=== PATIENT | male | born 1960 | race Caucasian/White ===

== ENCOUNTER 2024-12-11 08:01 | Day surgery (SDC) | payer OTHER, SELFPAY ==
[2024-11-23 09:11] VITALS: BMI 28.1
[2024-11-23 09:36] LABS: Hematocrit 44.7 % (39.0-52.0); Hemoglobin 15.2 g/dL (13.0-18.0); Mean Corp Hgb Conc. 34.0 g/dL (33.0-37.0); Mean Corpuscular Volume 94.3 fL (80.0-94.0); Nucleated Red Blood Cells % 0 % (-); Platelet Count 177 10^3/uL (130-400); Red Cell Dist. Width 13.2 % (11.5-14.5)
[2024-11-23 09:50] LABS: INR 1.14; PT 15.0 Sec (11.4-14.6)
[2024-11-23 09:52] LABS: ALT (SGPT) 23 U/L (0-50); AST (SGOT) 22 U/L (17-59); Albumin 4.4 g/dl (3.5-5.0); Alkaline Phosphatase 58 U/L (38-126); Blood Urea Nitrogen 26 mg/dl (9-20); Calcium 9.7 mg/dl (8.4-10.2); Carbon Dioxide 28 mmol/L (22-30); Chloride 106 mmol/L (98-107); Estimated Creatinine Clearance 83 ml/min; Glucose 90 mg/dl (70-99); Magnesium 2.1 mg/dl (1.6-2.3); Potassium 4.8 mmol/L (3.5-5.1); Sodium 140 mmol/L (135-145); Total Protein 7.3 g/dl (6.3-8.2); eGFR > 60.00
[2024-12-11] VITALS (10 sets, daily range): BP systolic 102–162; BP diastolic 63–77
[2024-12-11 11:02] LABS: ACT-LR - POC 268 Seconds (116-155)
[2024-12-11 11:23] LABS: ACT-LR - POC 271 Seconds (116-155)
[2024-12-11] MEDS: ANESTHETIC LOZENGE 1 LOZENGE PO (13:23)
--- NOTE | 2024-12-11 15:55 | W.PN.UPDATE ---
Update Note
Progress Note Update
64 yo WM s/p PVI (Same day) .He denies cp, sob, miesha diet, voiding, EKG SR with PAC's, b/l groins c/d/i no HT, soft. He will resume Eliquis tonight and continue metoprolol. Activity restrictions reviewed. He will f/u Dr. Rojas in 3 mo. He is for d/c
home after 415p if groins stable.
--- NOTE | 2024-12-13 15:58 | W.PN.UPDATE ---
Update Note
Progress Note Update
Mr. Carter's procedure report for PVI was placed in another patient's chart who has the same name and coincidentally was at [facility] on the same day on December 11, 2024. I asked our medical records team to migrate the report that was
placed in another chart to this chart and delete the report in the other patient's chart.
== END 2024-12-11 16:15 | disposition home or self-care (01) ==
LOC: CATH 08:01
PROVIDERS: ATTENDING PHYSICIAN Internal Medicine Cardiovascular Disease; FAMILY PHYSICIAN Family Medicine; OTHER PHYSICIAN Internal Medicine Cardiovascular Disease
DX: I48.19 Other persistent atrial fibrillation (principal); R53.83 Other fatigue; R00.2 Palpitations; I10 Essential (primary) hypertension; E78.5 Hyperlipidemia, unspecified; Z79.899 Other long term (current) drug therapy; Z79.01 Long term (current) use of anticoagulants; Z88.5 Allergy status to narcotic agent
CPT/HCPCS: C1732; C1894; C1730; C1769; C1892; C1759; 36415; 75572; 80053; 83735; 85025; 85347; 85610; 86850; 86900; 86901; 93005; 93656; 93657; C1733; C1766; Q9967